=== PATIENT | male | born 1935 | race Caucasian/White ===

== ENCOUNTER → 2016-11-24 | Outpatient (CLI) | payer BC, MEDICARE ==
[2016-11-24 09:59] LABS: MEAN CORPUSCULAR HEMOGLOBIN 30.8 pg (27.0-33.0); MEAN CORPUSCULAR HGB CONC 33.1 g/dl (32.0-36.5); MEAN CORPUSCULAR VOLUME 92.9 fl (80.0-96.0); WHITE BLOOD COUNT 6.1 K/mm3 (4.0-10.0)
[2016-11-24 10:26] LABS: ALBUMIN 3.3 GM/DL (3.2-5.2); ALBUMIN/GLOBULIN RATIO 0.89 (1.00-1.93); BILIRUBIN,TOTAL 0.4 MG/DL (0.2-1.0); CALCIUM LEVEL 8.3 MG/DL (8.8-10.2); CREATININE FOR GFR 1.25 MG/DL (0.70-1.30); POTASSIUM SERUM 4.3 MEQ/L (3.5-5.1)
--- NOTE | 2016-11-24 23:00 | ECGEPIP ---
Stationary ECG Study 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 Electronically Signed On 11-24-2016 22:59:55 EDT by Carlos Buck
--- NOTE | 2016-11-27 16:03 | REP ---
PA and lateral chest: Comparison is 03/03/2016. The lung chester are clear. Cardiac size is upper normal, unchanged. Sternotomy wires are again noted. The anjali, mediastinum, and bony thorax are unremarkable. Faintly visible wires are noted in the anterior chest wall soft tissues inferiorly, unchanged. Impression: Essentially negative chest. No interval change. Signed by Piyush Lyles MD 11/27/2016 03:54 P
== END ==
LOC: M LAB 09:07
PROVIDERS: ATTEND Family Medicine
DX: I10 Essential (primary) hypertension (principal)

== ENCOUNTER → 2016-12-08 | Day surgery (SDC) | payer BC, MEDICARE ==
[~2016-12-08] VITALS: Ht 165.1 cm; Wt 70.3 kg
[~2016-12-08] MED LIST: ACETAMINOPHEN 325 MG TAB PO PRN; AMLO5TAB2 PO; ASPI1TAB PO; AcetaZOLAMIDE 500 MG ER CAP PO ONE; BSS with VANC/TOB/EPI for EYE CASES IR ONE; CYCLOPENTOLATE 2% OPHTH SOLN OS ONE; D5W/0.2% SODIUM CHLORIDE 1,000 ML IV SCH; HEALON DUET (HEALON 10MG/ML 0.55ML & HEALON ENDOCOAT 30MG/ML 0.85ML) As Ordered ONE; KETOROLAC 0.5% OPHTH SOLN OS ONE; LIDOCAINE 1% SDV 5 ML VIAL As Ordered ONE; LIDOCAINE 4% INJ 5 ML AMP OU ONE; LR 1,000 ML IV SCH; METO-207 PO; METOPROLOL SUCC *XL* 25MG TAB (TopROL *XL*) PO ONE; MOXIFLOXACIN IN BSS 0.25MG/0.25ML INTRACAMERAL INJ (OR EYE ONLY)(J2280) As Ordered ONE; OFLOXACIN 0.3 % (OCUFLOX) OPTH SOL 5ML OS ONE; ONDANSETRON 4MG/2ML VIAL (J2405) IV PRN; PHENYLEPHRINE 2.5% OPHTH SOL 2ML OS ONE; POVIDONE-IODINE 5% OPHTH PREP SOL 30ML As Ordered ONE; PRAV40TA2 PO; PROPARACAINE 0.5% OPHTH SOL 15ML OS PRN; SYNT100T PO; SYSTSOL11 OU; TRIAMCINOLONE PRES FR 40 MG/ML 1ML(TRIESENCE)(OR EYE ONLY)(J3300 PER 1MG) As Ordered ONE; TRIMETHOBENZAMIDE 300 MG CAP PO PRN; TROPICAMIDE 1% OPHTH SOLN 2 ML OS ONE
[2016-12-08 09:09] VITALS: BP 173/98
[2016-12-08 11:15] VITALS: BP 174/96
== END | disposition home or self-care (01) ==
LOC: M SDC 07:52
PROVIDERS: ATTEND Ophthalmology
DX: H26.9 Unspecified cataract (principal); I25.10 Atherosclerotic heart disease of native coronary artery without angina pectoris; E78.00 Pure hypercholesterolemia, unspecified; E03.9 Hypothyroidism, unspecified; R29.898 Other symptoms and signs involving the musculoskeletal system; Z79.899 Other long term (current) drug therapy; Z79.82 Long term (current) use of aspirin
CPT/HCPCS: 66984; J2280; J3300

== ENCOUNTER → 2016-12-16 | Day surgery (SDC) | payer BC, MEDICARE ==
[~2016-12-16] MED LIST changes: +CYCLOPENTOLATE 2% OPHTH SOLN OD ONE; -CYCLOPENTOLATE 2% OPHTH SOLN OS ONE; -D5W/0.2% SODIUM CHLORIDE 1,000 ML IV SCH; +D5W/0.2% SODIUM CHLORIDE 250 ML IV SCH; +FISH5CAP PO; +KETOROLAC 0.5% OPHTH SOLN OD ONE; -KETOROLAC 0.5% OPHTH SOLN OS ONE; -LR 1,000 ML IV SCH; -METOPROLOL SUCC *XL* 25MG TAB (TopROL *XL*) PO ONE; +MIDAZOLAM INJ 2 MG/2 ML VIAL (J2250) As Ordered ONE; +OFLOXACIN 0.3 % (OCUFLOX) OPTH SOL 5ML OD ONE; -OFLOXACIN 0.3 % (OCUFLOX) OPTH SOL 5ML OS ONE; -ONDANSETRON 4MG/2ML VIAL (J2405) IV PRN; +PHENYLEPHRINE 2.5% OPHTH SOL 2ML OD ONE; -PHENYLEPHRINE 2.5% OPHTH SOL 2ML OS ONE; +PROPARACAINE 0.5% OPHTH SOL 15ML OD PRN; -PROPARACAINE 0.5% OPHTH SOL 15ML OS PRN; +TROPICAMIDE 1% OPHTH SOLN 2 ML OD ONE; -TROPICAMIDE 1% OPHTH SOLN 2 ML OS ONE; +fentaNYL 100 MCG/2 ML INJECTION (J3010) As Ordered ONE
[2016-12-16 09:25] VITALS: BP 179/86
== END | disposition home or self-care (01) ==
LOC: M SDC 06:24
PROVIDERS: ATTEND Ophthalmology
DX: H26.9 Unspecified cataract (principal); I10 Essential (primary) hypertension; E03.9 Hypothyroidism, unspecified; I25.10 Atherosclerotic heart disease of native coronary artery without angina pectoris; E78.00 Pure hypercholesterolemia, unspecified; R29.898 Other symptoms and signs involving the musculoskeletal system; Z79.899 Other long term (current) drug therapy; Z79.82 Long term (current) use of aspirin; Z85.46 Personal history of malignant neoplasm of prostate
CPT/HCPCS: 66984; J2250; J2280; J3010; J3300

== ENCOUNTER → 2017-12-06 | Outpatient (CLI) | payer BC ==
[2017-12-06 12:40] LABS: HEMATOCRIT 43.3 % (42.0-52.0); HEMOGLOBIN 14.5 g/dl (13.5-17.5); MEAN CORPUSCULAR HEMOGLOBIN 30.9 pg (27.0-33.0); MEAN CORPUSCULAR HGB CONC 33.5 g/dl (32.0-36.5); MEAN CORPUSCULAR VOLUME 92.3 fl (80.0-96.0); PLATELET COUNT, AUTOMATED 217 10^3/uL (150-450); RED BLOOD COUNT 4.69 10^6/uL (4.30-6.10); RED CELL DISTRIBUTION WIDTH 12.9 % (11.5-14.5); WHITE BLOOD COUNT 7.8 10^3/uL (4.0-10.0)
[2017-12-06 13:18] LABS: ALBUMIN 3.6 GM/DL (3.2-5.2); ALKALINE PHOSPHATASE 89 U/L (45-117); ALT/SGPT 23 U/L (12-78); ANION GAP 7 MEQ/L (8-16); AST/SGOT 23 U/L (7-37); BILIRUBIN,TOTAL 0.3 MG/DL (0.2-1.0); BLOOD UREA NITROGEN 24 MG/DL (7-18); CALCIUM LEVEL 8.7 MG/DL (8.8-10.2); CARBON DIOXIDE LEVEL 27 MEQ/L (21-32); CHLORIDE LEVEL 108 MEQ/L (98-107); CHOLESTEROL LEVEL 156 MG/DL (<200); CHOLESTEROL RISK RATIO 2.888 (<5); GLOMERULAR FILTRATION RATE 56.3 (>35); GLUCOSE, FASTING 87 MG/DL (70-100); HDL CHOLESTEROL 54 MG/DL (>40); LDL CHOLESTEROL 82.4 MG/DL (<100); NON-HDL-C 102 MG/DL; POTASSIUM SERUM 4.5 MEQ/L (3.5-5.1); SODIUM LEVEL 142 MEQ/L (136-145); THYROID STIMULATING HORMONE 0.321 uIU/ML (0.358-3.740); TOTAL PROTEIN 7.2 GM/DL (6.4-8.2); TRIGLYCERIDES LEVEL 98 MG/DL (<150)
== END ==
LOC: M LAB 11:57
DX: R94.31 Abnormal electrocardiogram [ECG] [EKG] (principal); I10 Essential (primary) hypertension; N40.0 Benign prostatic hyperplasia without lower urinary tract symptoms; E03.9 Hypothyroidism, unspecified
CPT/HCPCS: 71046

== ENCOUNTER → 2017-12-23 | Outpatient (REF) | payer BC, MEDICARE ==
[2017-12-23 13:47] LABS: APPEARANCE, URINE CLEAR (CLEAR); BACTERIA, URINE AUTO NEGATIVE (NEGATIVE); BILIRUBIN, URINE AUTO NEGATIVE (NEGATIVE); BLOOD, URINE BLOOD NEGATIVE (NEGATIVE); COLOR, URINE YELLOW (YELLOW); GLUCOSE, URINE (UA) AUTO NEGATIVE (NEGATIVE); KETONE, URINE AUTO NEGATIVE (NEGATIVE); LEUKOCYTE ESTERASE, URINE AUTO NEGATIVE (NEGATIVE); NITRITE, URINE AUTO NEGATIVE (NEGATIVE); PROTEIN, URINE AUTO 2+ mg/dL (NEGATIVE); RBC, URINE AUTO 0 /HPF (0-3); SPECIFIC GRAVITY URINE AUTO 1.016 (1.002-1.035); SQUAMOUS EPITHELIAL CELL UR AU 0 /HPF (0-6); UROBILINOGEN, URINE AUTO 0.2 mg/dL (0.0-2.0); WBC, URINE AUTO 0 /HPF (0-3)
== END ==
LOC: M SMT 13:22
DX: R97.20 Elevated prostate specific antigen [PSA] (principal)
CPT/HCPCS: 81001

== ENCOUNTER → 2018-01-04 | Outpatient (CLI) | payer BC, MEDICARE | LOC: M SMT PRO 09:22 | DX: R97.20 Elevated prostate specific antigen [PSA] (principal) | CPT/HCPCS: G0416 ==

== ENCOUNTER → 2018-04-07 | Outpatient (CLI) | payer BC, MEDICARE ==
[2018-04-07 11:17] LABS: HEMATOCRIT 43.2 % (42.0-52.0); HEMOGLOBIN 14.4 g/dl (13.5-17.5); MEAN CORPUSCULAR HEMOGLOBIN 30.6 pg (27.0-33.0); MEAN CORPUSCULAR HGB CONC 33.3 g/dl (32.0-36.5); MEAN CORPUSCULAR VOLUME 91.7 fl (80.0-96.0); PLATELET COUNT, AUTOMATED 208 10^3/uL (150-450); RED BLOOD COUNT 4.71 10^6/uL (4.30-6.10); RED CELL DISTRIBUTION WIDTH 12.8 % (11.5-14.5)
[2018-04-07 11:28] LABS: INR 0.93; PROTHROMBIN TIME 12.6 SECONDS (12.1-14.4)
[2018-04-07 11:50] LABS: ALBUMIN 3.5 GM/DL (3.2-5.2); ALKALINE PHOSPHATASE 83 U/L (45-117); ALT/SGPT 21 U/L (12-78); ANION GAP 9 MEQ/L (8-16); AST/SGOT 20 U/L (7-37); BILIRUBIN,TOTAL 0.5 MG/DL (0.2-1.0); BLOOD UREA NITROGEN 33 MG/DL (7-18); CALCIUM LEVEL 8.7 MG/DL (8.8-10.2); CARBON DIOXIDE LEVEL 28 MEQ/L (21-32); CHLORIDE LEVEL 104 MEQ/L (98-107); CHOLESTEROL LEVEL 152 MG/DL (<200); CHOLESTEROL RISK RATIO 3.166 (<5); CREATININE FOR GFR 1.73 MG/DL (0.70-1.30); GLOMERULAR FILTRATION RATE 40.4 (>35); GLUCOSE, FASTING 85 MG/DL (70-100); HDL CHOLESTEROL 48 MG/DL (>40); LDL CHOLESTEROL 89.2 MG/DL (<100); NON-HDL-C 104 MG/DL; POTASSIUM SERUM 4.2 MEQ/L (3.5-5.1); SODIUM LEVEL 141 MEQ/L (136-145); THYROID STIMULATING HORMONE 0.277 uIU/ML (0.358-3.740); TOTAL PROTEIN 7.4 GM/DL (6.4-8.2); TRIGLYCERIDES LEVEL 74 MG/DL (<150)
== END ==
LOC: M LAB 10:30
DX: Z01.818 Encounter for other preprocedural examination (principal); I10 Essential (primary) hypertension
CPT/HCPCS: 71046

== ENCOUNTER 2018-04-12 05:42 | Day surgery (SDC) | payer BC, MEDICARE ==
[2018-04-12] MEDS ORDERED: SLF 3 ML SYR IV ×2 (06:00)
[2018-04-12 06:28] LABS: BEDSIDE GLUCOSE 104 MG/DL (83-110)
[2018-04-12] MEDS: LIDOCAINE 3.5 % 1ML OPHTH TOPICAL GEL OU (07:00)
[2018-04-12] MEDS ORDERED: PROPOFOL 200 MG/20 ML VIAL As Ordered (07:01)
[2018-04-12] MEDS ORDERED: LIDOCAINE 2% INJ 100 MG/5 ML SDV (FOR ANES.) As Ordered (07:01)
[2018-04-12] MEDS: LIDOCAINE 2% W/EPIN INJ 20ML **PRES FREE As Ordered (07:35)
[2018-04-12] MEDS: POVIDONE-IODINE 5% OPHTH PREP SOL 30ML As Ordered (07:35)
[2018-04-12] MEDS: TETRACAINE 0.5% OPHTH SOLN 4ML As Ordered (07:41)
[2018-04-12] MEDS: TOBRADEX OPHTH OINT 3.5 GM As Ordered (07:42)
== END 2018-04-12 09:00 | disposition home or self-care (01) ==
LOC: M SDC 05:42
DX: H02.012 Cicatricial entropion of right lower eyelid (principal); H02.015 Cicatricial entropion of left lower eyelid; I10 Essential (primary) hypertension; E11.9 Type 2 diabetes mellitus without complications; E78.5 Hyperlipidemia, unspecified; E03.9 Hypothyroidism, unspecified; Z79.82 Long term (current) use of aspirin; Z79.84 Long term (current) use of oral hypoglycemic drugs; Z79.899 Other long term (current) drug therapy
CPT/HCPCS: 67924

== ENCOUNTER → 2018-07-05 | Outpatient (CLI) | payer BC, MEDICARE ==
[2018-07-05 10:44] LABS: HEMATOCRIT 43.3 % (42.0-52.0); HEMOGLOBIN 14.2 g/dl (13.5-17.5); MEAN CORPUSCULAR HEMOGLOBIN 31.2 pg (27.0-33.0); MEAN CORPUSCULAR HGB CONC 32.8 g/dl (32.0-36.5); MEAN CORPUSCULAR VOLUME 95.2 fl (80.0-96.0); PLATELET COUNT, AUTOMATED 180 10^3/uL (150-450); RED BLOOD COUNT 4.55 10^6/uL (4.30-6.10); WHITE BLOOD COUNT 7.1 10^3/uL (4.0-10.0)
[2018-07-05 11:10] LABS: ESTIMATED AVERAGE GLUCOSE 117 MG/DL (60-110); HEMOGLOBIN A1c 5.7 %
[2018-07-05 11:24] LABS: ALBUMIN 3.3 GM/DL (3.2-5.2); ALBUMIN/GLOBULIN RATIO 0.92 (1.00-1.93); ALKALINE PHOSPHATASE 85 U/L (45-117); ALT/SGPT 24 U/L (12-78); ANION GAP 5 MEQ/L (8-16); AST/SGOT 21 U/L (7-37); BILIRUBIN,TOTAL 0.4 MG/DL (0.2-1.0); BLOOD UREA NITROGEN 29 MG/DL (7-18); CALCIUM LEVEL 8.5 MG/DL (8.8-10.2); CARBON DIOXIDE LEVEL 30 MEQ/L (21-32); CHLORIDE LEVEL 108 MEQ/L (98-107); CHOLESTEROL LEVEL 163 MG/DL (<200); CHOLESTEROL RISK RATIO 3.018 (<5); GLOMERULAR FILTRATION RATE 56.1 (>35); GLUCOSE, FASTING 98 MG/DL (70-100); HDL CHOLESTEROL 54 MG/DL (>40); LDL CHOLESTEROL 96 MG/DL (<100); NON-HDL-C 109 MG/DL; POTASSIUM SERUM 4.2 MEQ/L (3.5-5.1); PROSTATIC SPECIFIC AG MONITOR 5.1 NG/ML (< 4.0); SODIUM LEVEL 143 MEQ/L (136-145); THYROID STIMULATING HORMONE 0.464 uIU/ML (0.358-3.740); TOTAL PROTEIN 6.9 GM/DL (6.4-8.2); TRIGLYCERIDES LEVEL 66 MG/DL (<150)
== END ==
LOC: M LAB 10:05
DX: E03.9 Hypothyroidism, unspecified (principal); I10 Essential (primary) hypertension; R53.83 Other fatigue
CPT/HCPCS: 84443

== ENCOUNTER → 2018-10-24 | Outpatient (CLI) | payer BC, MEDICARE ==
[~2018-10-24] MED LIST changes: -ACETAMINOPHEN 325 MG TAB PO PRN; -AMLO5TAB2 PO; +AMLO5TAB6 PO; -AcetaZOLAMIDE 500 MG ER CAP PO ONE; -BSS with VANC/TOB/EPI for EYE CASES IR ONE; -CYCLOPENTOLATE 2% OPHTH SOLN OD ONE; -D5W/0.2% SODIUM CHLORIDE 250 ML IV SCH; -HEALON DUET (HEALON 10MG/ML 0.55ML & HEALON ENDOCOAT 30MG/ML 0.85ML) As Ordered ONE; +HYDR12CA PO; -KETOROLAC 0.5% OPHTH SOLN OD ONE; -LIDOCAINE 1% SDV 5 ML VIAL As Ordered ONE; -LIDOCAINE 4% INJ 5 ML AMP OU ONE; +METF500T13 PO; -METO-207 PO; +METO1TAB7 PO; +METO50TA7 PO; -MIDAZOLAM INJ 2 MG/2 ML VIAL (J2250) As Ordered ONE; -MOXIFLOXACIN IN BSS 0.25MG/0.25ML INTRACAMERAL INJ (OR EYE ONLY)(J2280) As Ordered ONE; -OFLOXACIN 0.3 % (OCUFLOX) OPTH SOL 5ML OD ONE; -PHENYLEPHRINE 2.5% OPHTH SOL 2ML OD ONE; -POVIDONE-IODINE 5% OPHTH PREP SOL 30ML As Ordered ONE; -PROPARACAINE 0.5% OPHTH SOL 15ML OD PRN; -TRIAMCINOLONE PRES FR 40 MG/ML 1ML(TRIESENCE)(OR EYE ONLY)(J3300 PER 1MG) As Ordered ONE; -TRIMETHOBENZAMIDE 300 MG CAP PO PRN; -TROPICAMIDE 1% OPHTH SOLN 2 ML OD ONE; -fentaNYL 100 MCG/2 ML INJECTION (J3010) As Ordered ONE
[2018-10-24 09:12] LABS: CALCIUM LEVEL 8.2 MG/DL (8.8-10.2); CREATININE FOR GFR 1.37 MG/DL (0.70-1.30); GLOMERULAR FILTRATION RATE 52.8 (>35); POTASSIUM SERUM 4.5 MEQ/L (3.5-5.1)
== END ==
LOC: M LAB 07:48
PROVIDERS: ATTEND Internal Medicine Cardiovascular Disease
DX: I10 Essential (primary) hypertension (principal)

== ENCOUNTER → 2018-11-30 | Outpatient (CLI) | payer BC, MEDICARE ==
[~2018-11-30] MED LIST changes: +AMLO2.5T3 PO; -ASPI1TAB PO; +ASPI81TA26 PO; +DOXA1TAB85 PO; +OMEG12003 PO; +SYST1SOL4 OU
[2018-11-30 09:49] LABS: HEMATOCRIT 42.3 % (42.0-52.0); HEMOGLOBIN 13.7 g/dl (13.5-17.5); MEAN CORPUSCULAR HEMOGLOBIN 30.4 pg (27.0-33.0); MEAN CORPUSCULAR HGB CONC 32.4 g/dl (32.0-36.5); PLATELET COUNT, AUTOMATED 182 10^3/uL (150-450); WHITE BLOOD COUNT 6.2 10^3/uL (4.0-10.0)
[2018-11-30 09:59] LABS: INR 0.96; PROTHROMBIN TIME 12.9 SECONDS (12.1-14.4)
[2018-11-30 10:17] LABS: ALBUMIN 3.4 GM/DL (3.2-5.2); BILIRUBIN,TOTAL 0.4 MG/DL (0.2-1.0); CALCIUM LEVEL 8.5 MG/DL (8.8-10.2); CHOLESTEROL RISK RATIO 2.879 (<5); CREATININE FOR GFR 1.34 MG/DL (0.70-1.30); GLOMERULAR FILTRATION RATE 54.2 (>35); POTASSIUM SERUM 4.5 MEQ/L (3.5-5.1); PROSTATIC SPECIFIC AG MONITOR 6.02 NG/ML (< 4.00); THYROID STIMULATING HORMONE 0.789 uIU/ML (0.358-3.740); TOTAL PROTEIN 6.8 GM/DL (6.4-8.2)
[2018-11-30 10:46] LABS: HEMOGLOBIN A1c 5.9 %
--- NOTE | 2018-12-01 03:50 | REP ---
Clinical: Hypertension . Comparison: 04/07/2018 . Technique: PA and lateral. Findings: The mediastinum and cardiac silhouette are stable and within normal limits. Evidence of prior sternotomy and CABG noted. The lung chester are clear and without acute consolidation, effusion, or pneumothorax. The skeletal structures are intact and normal. Impression: 1. No acute cardiopulmonary process. Electronically Signed by Ceasar Bello MD 12/01/2018 03:42 A
--- NOTE | 2018-12-01 20:29 | ECGEPIP ---
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 Electronically Signed On 12-01-2018 20:29:28 EDT by Jairo Galindo
== END ==
LOC: M LAB 08:53
PROVIDERS: ATTEND Family Medicine
DX: Z01.812 Encounter for preprocedural laboratory examination (principal); I10 Essential (primary) hypertension

== ENCOUNTER 2018-12-12 07:40 | Day surgery (SDC) | payer BC, MEDICARE ==
[~2018-12-12] VITALS: Ht 165.1 cm; Wt 75.9 kg
[~2018-12-12 07:40] MED LIST changes: +LIDOCAINE 3.5 % 1ML OPHTH TOPICAL GEL OU ONE; +POVIDONE-IODINE 5% OPHTH PREP SOL 30ML As Ordered ONE; +SODIUM BICARBONATE 8.4% INJ 50MEQ 50 ML VIAL As Ordered ONE; +TETRACAINE 0.5% OPHTH SOLN 4ML As Ordered ONE; +TOBRADEX OPHTH OINT 3.5 GM As Ordered ONE
[2018-12-12] MEDS ORDERED: LIDOCAINE 2% INJ 100 MG/5 ML SDV (FOR ANES.) As Ordered ONE (08:08)
[2018-12-12] MEDS ORDERED: PROPOFOL 200 MG/20 ML VIAL As Ordered ONE (08:08)
[2018-12-12] MEDS ORDERED: fentaNYL 100 MCG/2 ML INJECTION (J3010) As Ordered ONE (08:08)
[2018-12-12] MEDS ORDERED: MIDAZOLAM INJ 2 MG/2 ML VIAL (J2250) As Ordered ONE (08:09)
[2018-12-12] MEDS: LIDOCAINE 2% W/EPIN INJ 20ML **PRES FREE As Ordered ONE ×2 (09:24→09:30)
[2018-12-12 11:20] VITALS: BP 179/80
--- NOTE | 2019-01-04 06:49 | RO ---
DATE OF PROCEDURE: 12/12/2018 PREOPERATIVE DIAGNOSES: Dermatochalasis and ptosis both eyes. POSTOPERATIVE DIAGNOSES: Dermatochalasis and ptosis both eyes. OPERATIVE PROCEDURE: Bilateral brephoplasty with levator aponeurosis reattachment and ptosis repair both upper lids. SURGEON: Tri Lawrence MD SENIOR COMPLIANCE ANALYST: None. ANESTHESIA: Local IV standby. COMPLICATIONS: None. PROCEDURE IN DETAIL: The patient was brought to the operating room. Upper face was prepped and draped in a sterile fashion for ophthalmic surgery. Following which, both upper lids were marked with a sterile marker along the lines of intended skin incision. Both upper lids were then infiltrated with 2% lidocaine with 1:100,000 epinephrine and after waiting for a few minutes, with the help of the electrocautery and Anitra scissors attention was first diverted to the right eye and the premarked skin was excised. Hemostasis was obtained as necessary. Deeper dissection was carried out until I isolated the medial and lateral fat pads which were cut with the help of electrocautery and hemostasis obtained. Levator aponeurosis was then identified and was reattached using interrupted #6-0 nylon sutures. Lid position was noted to be satisfactory. Skin was closed using #6-0 nylon sutures. Exactly the same procedure was repeated for the left eye. At the end of the case, TobraDex ointment was applied. Ice packs were placed and patient was returned to the recovery room in stable condition. edited 01/04/2019/jessy VIRK
== END 2018-12-12 11:40 | disposition home or self-care (01) ==
LOC: M SDC 07:40
PROVIDERS: ATTEND Ophthalmology
DX: H02.834 Dermatochalasis of left upper eyelid (principal); H02.831 Dermatochalasis of right upper eyelid; I10 Essential (primary) hypertension; I25.10 Atherosclerotic heart disease of native coronary artery without angina pectoris; E03.9 Hypothyroidism, unspecified; E78.00 Pure hypercholesterolemia, unspecified; N40.0 Benign prostatic hyperplasia without lower urinary tract symptoms; Z79.899 Other long term (current) drug therapy; Z79.82 Long term (current) use of aspirin; Z79.84 Long term (current) use of oral hypoglycemic drugs; Z96.1 Presence of intraocular lens; Z98.41 Cataract extraction status, right eye; Z98.42 Cataract extraction status, left eye
CPT/HCPCS: 15823; 88302; J2250; J3010

== ENCOUNTER → 2019-01-09 | Outpatient (CLI) | payer BC, MEDICARE ==
[~2019-01-09] MED LIST changes: -LIDOCAINE 3.5 % 1ML OPHTH TOPICAL GEL OU ONE; -POVIDONE-IODINE 5% OPHTH PREP SOL 30ML As Ordered ONE; -SODIUM BICARBONATE 8.4% INJ 50MEQ 50 ML VIAL As Ordered ONE; -TETRACAINE 0.5% OPHTH SOLN 4ML As Ordered ONE; -TOBRADEX OPHTH OINT 3.5 GM As Ordered ONE
[2019-01-09 09:10] LABS: HEMATOCRIT 42.2 % (42.0-52.0); HEMOGLOBIN 13.9 g/dl (13.5-17.5); MEAN CORPUSCULAR HGB CONC 32.9 g/dl (32.0-36.5); MEAN CORPUSCULAR VOLUME 94.2 fl (80.0-96.0); PLATELET COUNT, AUTOMATED 171 10^3/uL (150-450); RED BLOOD COUNT 4.48 10^6/uL (4.30-6.10)
[2019-01-09 09:30] LABS: ALBUMIN 3.2 GM/DL (3.2-5.2); ALT/SGPT 14 U/L (12-78); BILIRUBIN,TOTAL 0.3 MG/DL (0.2-1.0); BLOOD UREA NITROGEN 26 MG/DL (7-18); CALCIUM LEVEL 8.6 MG/DL (8.8-10.2); CARBON DIOXIDE LEVEL 27 MEQ/L (21-32); CHLORIDE LEVEL 110 MEQ/L (98-107); CHOLESTEROL LEVEL 156 MG/DL (<200); CHOLESTEROL RISK RATIO 2.836 (<5); GLOMERULAR FILTRATION RATE > 60.0 (>35); GLUCOSE, FASTING 104 MG/DL (70-100); HDL CHOLESTEROL 55 MG/DL (>40); LDL CHOLESTEROL 89 MG/DL (<100); NON-HDL-C 101 MG/DL; PROSTATIC SPECIFIC AG MONITOR 5.21 NG/ML (< 4.00); SODIUM LEVEL 143 MEQ/L (136-145); THYROID STIMULATING HORMONE 0.199 uIU/ML (0.358-3.740); TOTAL PROTEIN 6.4 GM/DL (6.4-8.2); TRIGLYCERIDES LEVEL 59 MG/DL (<150)
[2019-01-09 10:08] LABS: HEMOGLOBIN A1c 5.9 %
== END ==
LOC: M LAB 08:11
PROVIDERS: ATTEND Family Medicine
DX: I10 Essential (primary) hypertension (principal); R53.83 Other fatigue

== ENCOUNTER 2019-01-30 09:01 | Emergency (ER) | payer BC, MEDICARE ==
[~2019-01-30] VITALS: Ht 165.1 cm; Wt 70.5 kg
[2019-01-30 09:48] LABS: BASO % 0.6 % (0.0-1.0); EOS # 0.1 10^3/uL (0.0-0.50); EOS % 1.6 % (0.0-3.0); HEMATOCRIT 43.2 % (42.0-52.0); HEMOGLOBIN 14.2 g/dl (13.5-17.5); LYMPH # 1.3 10^3/uL (1.5-4.5); MEAN CORPUSCULAR HEMOGLOBIN 30.7 pg (27.0-33.0); MEAN CORPUSCULAR HGB CONC 32.9 g/dl (32.0-36.5); MEAN CORPUSCULAR VOLUME 93.5 fl (80.0-96.0); MONO # 0.6 10^3/uL (0.0-0.8); MONO % 9.2 % (0.0-5.0); NEUTROPHILS # 4.4 10^3/uL (1.8-7.7); NEUTROPHILS % 67.8 % (36.0-66.0); PLATELET COUNT, AUTOMATED 175 10^3/uL (150-450); RED BLOOD COUNT 4.62 10^6/uL (4.30-6.10); WHITE BLOOD COUNT 6.4 10^3/uL (4.0-10.0)
[2019-01-30 10:12] LABS: ALBUMIN 3.1 GM/DL (3.2-5.2); ALT/SGPT 20 U/L (12-78); BILIRUBIN,TOTAL 0.3 MG/DL (0.2-1.0); BLOOD UREA NITROGEN 31 MG/DL (7-18); CALCIUM LEVEL 8.7 MG/DL (8.8-10.2); CARBON DIOXIDE LEVEL 29 MEQ/L (21-32); CHLORIDE LEVEL 109 MEQ/L (98-107); CREATININE FOR GFR 1.48 MG/DL (0.70-1.30); GLOMERULAR FILTRATION RATE 48.3 (>35); GLUCOSE, FASTING 114 MG/DL (70-100); POTASSIUM SERUM 4.1 MEQ/L (3.5-5.1); SODIUM LEVEL 144 MEQ/L (136-145); TOTAL PROTEIN 6.9 GM/DL (6.4-8.2)
[2019-01-30 10:44] LABS: CK-MB VALUE MASS 1.7 NG/ML (<3.6); CPK CREATINE PHOSPHOKINASE 72 U/L (39-308); MB/CK RELATIVE INDEX 2.36 (< OR =4); TROPONIN I < 0.02 NG/ML (< 0.10)
--- NOTE | 2019-01-30 11:08 | REP ---
CHEST, TWO VIEWS: Two views of the chest are performed and compared to a prior study of 11/30/2018. There is no acute infiltrate or pulmonary edema. There is mild cardiomegaly. Mediastinal silhouette is unchanged. There are multiple sternal wires and mediastinal clips present. There are mild degenerative changes of the spine. IMPRESSION: No acute pulmonary disease. Electronically Signed by Piyush Pablo MD 01/31/2019 11:31 A
[2019-01-30 12:39] VITALS: BP 157/79
--- NOTE | 2019-01-31 07:46 | ECGEPIP ---
[facility] - ED Test Date: 2019-01-30 Pat Name: KAYLEY METZGER Department: Room: - Gender: Male On Air Host: TC : 1935 Requested By: CARL Bhagat Order Number: [id number] Reading MD: Nelson Rodriguez Measurements Intervals [place] Rate: 56 P: 61 [place]: 164 QRS: 5 QRSD: 104 T: 52 QT: 426 QTc: 415 Interpretive Statements SINUS BRADYCARDIA POSSIBLE LEFT ATRIAL ENLARGEMENT MODERATE VOLTAGE CRITERIA FOR LVH, CONSIDER NORMAL VARIANT INFERIOR MYOCARDIAL INFARCTION, PROBABLY OLD MODERATE INTRAVENTRICULAR CONDUCTION DELAY SIMILAR TO 11/30/18 Electronically Signed on 01-31-2019 7:45:48 EDT by Nelson Rodriguez
== END 2019-01-30 12:45 | disposition home or self-care (01) ==
LOC: EDBD 09:01 → M ED 09:01
DX: R55 Syncope and collapse (principal); E11.9 Type 2 diabetes mellitus without complications; I10 Essential (primary) hypertension; E07.9 Disorder of thyroid, unspecified; E78.5 Hyperlipidemia, unspecified; Z79.899 Other long term (current) drug therapy; Z79.890 Hormone replacement therapy; Z79.82 Long term (current) use of aspirin

== ENCOUNTER → 2019-05-05 | Outpatient (CLI) | payer BC, MEDICARE ==
[2019-05-05 09:50] LABS: HEMATOCRIT 40.1 % (42.0-52.0); HEMOGLOBIN 13.2 g/dl (13.5-17.5); MEAN CORPUSCULAR HEMOGLOBIN 30.3 pg (27.0-33.0); MEAN CORPUSCULAR HGB CONC 32.9 g/dl (32.0-36.5); MEAN CORPUSCULAR VOLUME 92.2 fl (80.0-96.0); PLATELET COUNT, AUTOMATED 187 10^3/uL (150-450); RED BLOOD COUNT 4.35 10^6/uL (4.30-6.10); WHITE BLOOD COUNT 6.5 10^3/uL (4.0-10.0)
[2019-05-05 10:04] LABS: HEMOGLOBIN A1c 5.9 %
--- NOTE | 2019-05-05 10:17 | REP ---
Chest x-ray: Two views. History: Fatigue. Hypertension. Comparison study: January 30, 2019. Findings: The patient is status post median sternotomy. The heart is mildly prominent. Cardiothoracic ratio measures 52.3%. Heart is unchanged. The descending aorta somewhat tortuous. The lungs are well inflated and clear. Pulmonary vasculature is not increased. Lateral view demonstrates hyperinflation with flattening of the diaphragms. This consistent with COPD. No significant bony abnormality is seen. Impression: Hyperinflation consistent with COPD. Mild cardiac enlargement. Otherwise no acute disease. Electronically Signed by Florentino Jackson MD 05/05/2019 10:09 A
[2019-05-05 10:19] LABS: ALBUMIN 3.2 GM/DL (3.2-5.2); BILIRUBIN,TOTAL 0.4 MG/DL (0.2-1.0); CALCIUM LEVEL 9.2 MG/DL (8.8-10.2); CHOLESTEROL RISK RATIO 2.719 (<5); CREATININE FOR GFR 1.36 MG/DL (0.70-1.30); GLOMERULAR FILTRATION RATE 53.1 (>35); POTASSIUM SERUM 4.5 MEQ/L (3.5-5.1); PROSTATIC SPECIFIC AG MONITOR 6.65 NG/ML (< 4.00); THYROID STIMULATING HORMONE 0.742 uIU/ML (0.358-3.740); TOTAL PROTEIN 6.7 GM/DL (6.4-8.2)
--- NOTE | 2019-05-05 16:44 | ECGEPIP ---
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
== END ==
LOC: M LAB 08:54
PROVIDERS: ATTEND Family Medicine
DX: I10 Essential (primary) hypertension (principal); E03.9 Hypothyroidism, unspecified; R53.83 Other fatigue; J44.9 Chronic obstructive pulmonary disease, unspecified

== ENCOUNTER → 2020-06-05 | Outpatient (CLI) | payer BC, MEDICARE ==
[~2020-06-05] MED LIST changes: +AMLO1TAB24 PO; -AMLO5TAB6 PO
[2020-06-05 09:24] LABS: HEMATOCRIT 44.2 % (42.0-52.0); HEMOGLOBIN 14.1 g/dl (13.5-17.5); MEAN CORPUSCULAR HEMOGLOBIN 30.1 pg (27.0-33.0); MEAN CORPUSCULAR HGB CONC 31.9 g/dl (32.0-36.5); MEAN CORPUSCULAR VOLUME 94.2 fl (80.0-96.0); PLATELET COUNT, AUTOMATED 181 10^3/uL (150-450); RED BLOOD COUNT 4.69 10^6/uL (4.30-6.10); WHITE BLOOD COUNT 6.3 10^3/uL (4.0-10.0)
--- NOTE | 2020-06-05 10:16 | ECGEPIP ---
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
[2020-06-05 10:17] LABS: HEMOGLOBIN A1c 5.8 %
[2020-06-05 10:27] LABS: ALBUMIN 3.3 GM/DL (3.2-5.2); BILIRUBIN,TOTAL 0.5 MG/DL (0.2-1.0); CALCIUM LEVEL 8.9 MG/DL (8.8-10.2); CHOLESTEROL RISK RATIO 2.683 (<5); CREATININE FOR GFR 1.69 MG/DL (0.70-1.30); GLOMERULAR FILTRATION RATE 41.3 (>35); POTASSIUM SERUM 4.3 MEQ/L (3.5-5.1); PROSTATIC SPECIFIC AG MONITOR 16.8 NG/ML (< 4.00); THYROID STIMULATING HORMONE 0.586 uIU/ML (0.358-3.740)
--- NOTE | 2020-06-10 10:25 | REP ---
CHEST XRAY: 06/05/20 CLINICAL: Hypertension and hypothyroidism. TECHNIQUE: PA and lateral. COMPARISON: 05/05/19. FINDINGS: Evidence for prior sternotomy and CABG. The cardiac silhouette is normal. The lung chester are clear. No consolidation, effusion, or pneumothorax. Skeletal structures intact. IMPRESSION: No acute cardiopulmonary process or focal consolidation. MTDD
== END ==
LOC: M LAB 08:35
PROVIDERS: ATTEND Family Medicine
DX: Z00.00 Encounter for general adult medical examination without abnormal findings (principal); I10 Essential (primary) hypertension; E11.9 Type 2 diabetes mellitus without complications; N40.0 Benign prostatic hyperplasia without lower urinary tract symptoms; E03.9 Hypothyroidism, unspecified

== ENCOUNTER → 2020-07-02 | Outpatient (REF) | payer BC, MEDICARE ==
[2020-07-02 18:05] LABS: APPEARANCE, URINE CLEAR (CLEAR); BACTERIA, URINE AUTO NEGATIVE (NEGATIVE); BILIRUBIN, URINE AUTO NEGATIVE (NEGATIVE); BLOOD, URINE BLOOD NEGATIVE (NEGATIVE); COLOR, URINE YELLOW (YELLOW); GLUCOSE, URINE (UA) AUTO NEGATIVE (NEGATIVE); KETONE, URINE AUTO NEGATIVE (NEGATIVE); LEUKOCYTE ESTERASE, URINE AUTO NEGATIVE (NEGATIVE); NITRITE, URINE AUTO NEGATIVE (NEGATIVE); PROTEIN, URINE AUTO 3+ mg/dL (NEGATIVE); RBC, URINE AUTO 0 /HPF (0-3); SPECIFIC GRAVITY URINE AUTO 1.017 (1.002-1.035); SQUAMOUS EPITHELIAL CELL UR AU 0 /HPF (0-6); UROBILINOGEN, URINE AUTO 0.2 mg/dL (0.0-2.0); WBC, URINE AUTO 1 /HPF (0-3)
== END ==
LOC: M SMT 17:13
PROVIDERS: ATTEND Nurse Practitioner Women's Health
DX: N40.0 Benign prostatic hyperplasia without lower urinary tract symptoms (principal)

== ENCOUNTER → 2020-07-04 | Outpatient (CLI) | payer BC, MEDICARE ==
[2020-07-04 10:09] LABS: CALCIUM LEVEL 8.7 MG/DL (8.8-10.2); CREATININE FOR GFR 1.47 MG/DL (0.70-1.30); GLOMERULAR FILTRATION RATE 48.5 (>35); POTASSIUM SERUM 4.2 MEQ/L (3.5-5.1)
== END ==
LOC: M LAB 09:02
PROVIDERS: ATTEND Nurse Practitioner Women's Health
DX: R97.20 Elevated prostate specific antigen [PSA] (principal)

== ENCOUNTER → 2020-07-29 | Outpatient (CLI) | payer BC, MEDICARE ==
--- NOTE | 2020-07-30 13:53 | REP ---
INDICATION: ELEVATED PSA. Status post ultrasound-guided prostate transrectal needle biopsy January 04, 2018. COMPARISON: January 04, 2018 transrectal prostate sonography. TECHNIQUE: Using a phased array surface coil, small qteyy-my-kgnj imaging was acquired using T2 weighted scans in the axial, coronal, and sagittal imaging planes. Small yfmom-ji-ttvp diffusion-weighted sequences are acquired. Small vpclz-ta-dtjo axial T1 weighted scans are acquired dynamically before and after the intravenous administration of 7 mL of ProHance. Imaging is reviewed using the [employer] computer-aided detection system. FINDINGS: There is a large right inguinal hernia containing mesenteric fat and several loops of unobstructed small intestine. There is no evidence of skeletal metastatic disease or pelvic or inguinal lymphadenopathy. Overall prostate glandular dimensions are 7.7 x 6.0 x 8.0 cm. Glandular volume 178.5 mL. There is considerable nodular enlargement of the central gland consistent with benign prostatic hypertrophy. There are T2 hyperintense cystic changes in the right apex. There is a T1 hyperintense proteinaceous cyst in the right anteroinferior apex. The peripheral zone is quite thin and compressed in appearance. There are 3 nodular areas of low T2 signal intensity in the central gland which are identified and for which regions of interest are drawn for consideration of ultrasound/MR fusion directed needle biopsy. Lesion #1 is in the left mid anterior transition zone with a calculated volume of 1.3 mL, diameter is 1.3 x 1.1 x 1.4 cm. It is a fairly well-circumscribed low T2 signal intensity nodular lesion with some restricted diffusion. It is not hypervascular. BIRADS category 3 Lesion #2 is in the right apical anterior transition zone calculated volume of 0.35 mL and diameters of 0.9 x 0.8 x 1.0 cm. It shows somewhat ill-defined margins low T2 signal mild restricted diffusion but not hypervascularity. BIRADS category 3. The third lesion is in the right mid posterior transition zone with a calculated volume of 0.99 mL and diameters of 1.3 x 1.2 x 1.0 cm. It shows low T2 signal, no restricted diffusion or hypervascular contrast enhancement, and is BIRADS 2 low likelihood of significant prostate malignancy. IMPRESSION: Moderate to marked prostate enlargement with hypertrophy of the central gland and cystic and nodular changes. There are 3 targets identified and submitted. No evidence of extraprostatic disease. <Electronically signed by Corby Jackson > 07/30/20 [id number]
== END ==
LOC: M PLARAD 16:09
PROVIDERS: ATTEND Nurse Practitioner Women's Health
DX: R97.20 Elevated prostate specific antigen [PSA] (principal)

== ENCOUNTER → 2020-08-27 | Outpatient (CLI) | payer BC, MEDICARE ==
--- NOTE | 2020-08-27 13:16 | REPPI ---
INDICATION: ELEVATED PSA. COMPARISON: None. TECHNIQUE: Transrectal prostate sonography, ultrasound guidance. FINDINGS: . Transrectal sonographic guidance is provided to Dr. Cantrell who performed trans rectal ultrasound guided needle biopsy procedure. IMPRESSION: Transrectal sonographic guidance. <Electronically signed by Corby Jackson > 08/27/20 [id number]
== END ==
LOC: M SMT PRO 09:14
PROVIDERS: ATTEND Urology
DX: R97.20 Elevated prostate specific antigen [PSA] (principal)

== ENCOUNTER → 2020-10-27 | Outpatient (CLI) | payer BC, MEDICARE ==
[2020-10-27 09:09] LABS: HEMATOCRIT 42.4 % (42.0-52.0); HEMOGLOBIN 13.4 g/dl (13.5-17.5); MEAN CORPUSCULAR HEMOGLOBIN 29.8 pg (27.0-33.0); MEAN CORPUSCULAR HGB CONC 31.6 g/dl (32.0-36.5); MEAN CORPUSCULAR VOLUME 94.4 fl (80.0-96.0); PLATELET COUNT, AUTOMATED 197 10^3/uL (150-450); RED BLOOD COUNT 4.49 10^6/uL (4.30-6.10); WHITE BLOOD COUNT 6.2 10^3/uL (4.0-10.0)
[2020-10-27 09:40] LABS: ALBUMIN 3.1 GM/DL (3.2-5.2); BILIRUBIN,TOTAL 0.3 MG/DL (0.2-1.0); CALCIUM LEVEL 8.3 MG/DL (8.8-10.2); CHOLESTEROL RISK RATIO 2.578 (<5); CREATININE FOR GFR 1.46 MG/DL (0.70-1.30); GLOMERULAR FILTRATION RATE 48.9 (>35); POTASSIUM SERUM 4.5 MEQ/L (3.5-5.1); PROSTATIC SPECIFIC AG MONITOR 7.04 NG/ML (< 4.00); THYROID STIMULATING HORMONE 0.95 uIU/ML (0.358-3.740); TOTAL PROTEIN 6.8 GM/DL (6.4-8.2)
[2020-10-27 10:08] LABS: HEMOGLOBIN A1c 5.6 %
== END ==
LOC: M LAB 08:27
PROVIDERS: ATTEND Family Medicine
DX: E03.9 Hypothyroidism, unspecified (principal); I10 Essential (primary) hypertension; E11.9 Type 2 diabetes mellitus without complications

== ENCOUNTER 2020-11-11 09:04 | Emergency (ER) | payer BC, MEDICARE ==
[~2020-11-11] VITALS: Ht 170.2 cm; Wt 73.8 kg
[2020-11-11] MEDS ORDERED: NS 1,000 ML IV ONE ×2 (09:15→09:45)
--- NOTE | 2020-11-11 09:44 | REP ---
INDICATION: chest pain. COMPARISON: Comparison chest x-ray June 05, 2020.. TECHNIQUE: Semi-erect AP portable chest x-ray. FINDINGS: Patient is status post prior median sternotomy. Monitoring electrodes and oxygen delivery tubing are noted. The lungs are well inflated and free of infiltrate. The pleural angles appear sharp. Heart size is borderline unchanged. Pulmonary vasculature is not increased. IMPRESSION: Borderline heart size. Otherwise no acute disease. <Electronically signed by Corby Jackson > 11/11/20 [id number]
[2020-11-11 10:01] LABS: HEMATOCRIT 25.8 % (42.0-52.0); HEMOGLOBIN 7.9 g/dl (13.5-17.5); MEAN CORPUSCULAR HEMOGLOBIN 29.9 pg (27.0-33.0); MEAN CORPUSCULAR HGB CONC 30.6 g/dl (32.0-36.5); MEAN CORPUSCULAR VOLUME 97.7 fl (80.0-96.0); RED BLOOD COUNT 2.64 10^6/uL (4.30-6.10); WHITE BLOOD COUNT 7.7 10^3/uL (4.0-10.0)
[2020-11-11 10:04] VITALS: O2SAT 99
[2020-11-11 10:15] LABS: PLATELET COUNT, AUTOMATED 88 10^3/uL (150-450)
--- NOTE | 2020-11-11 10:15 | REP ---
INDICATION: r/o AAA. COMPARISON: None. TECHNIQUE: Retroperitoneal sonography. FINDINGS: Scanning through the retroperitoneum demonstrates that the abdominal aorta is normal in caliber at the level of the diaphragmatic hiatus measuring 2.2 x 2.6 cm in AP by transverse dimension respectively. The abdominal aorta is obscured at the level of the renal arteries. Below the level renal arteries at mid aortic level, the dimensions are 1.9 x 2.2 cm. There is a large distal abdominal aortic aneurysm. This measures 7.4 cm anteroposterior by 7.5 cm right to left. A 6.5 cm length of abdominal aorta is aneurysmal. Common iliac arteries are obscured by bowel gas. No periaortic hematoma is appreciated. An irregular lumen with mural thrombus is seen within the aneurysm. IMPRESSION: Large abdominal aortic aneurysm, 7.4 x 7.5 cm in AP by transverse dimension respectively involving the distal aorta. Iliac arteries and the aorta at the level of the renal arteries is obscured by bowel gas. <Electronically signed by Corby Jackson > 11/11/20 [id number]
[2020-11-11 10:19] LABS: RSV AMPLIFICATION NEGATIVE (NEGATIVE)
[2020-11-11] MEDS ORDERED: NS 2,210 ML in IV 1 EA IV ONE (10:25)
[2020-11-11] MEDS ORDERED: CEFEPIME HCL 2 GM in D5W MINI-BAG PLUS 50 ML IV ONE (10:25)
[2020-11-11 10:40] VITALS: BP 62/39
--- NOTE | 2020-11-11 13:12 | RO ---
OPERATIVE NOTE DATE OF OPERATION: 11/11/2020 PREPROCEDURE DIAGNOSIS: Shock POSTPROCEDURE DIAGNOSIS: Shock. PROCEDURE: Central line procedure. SURGEON: Judy Cuellar MD. INDICATION: Vascular access. CONSENT: Due to the emergent nature of the procedure, the permission was implied, and the procedure was performed emergently in the ED. PROCEDURE SUMMARY: A central line insertion practices form was completed by an independent observer. A time out was performed prior to the procedure. Full sterile technique was maintained throughout the procedure including a surgical cap, mask with protective eye wear, full gown, and sterile gloves. The patient was placed supine. The left groin region was prepped using chlorhexidine scrub and draped in sterile fashion using a full drape and sterile probe cover employed. The left femoral vein was identified using ultrasound. Anesthesia was achieved over the vein using 1% lidocaine. Using real-time [id number] guidance, the introducer needle was inserted into the left femoral vein under direct ultrasound visualization. Venous blood was withdrawn. The introducer needle was removed over the guidewire. A small incision was made at the skin surface with a scalpel, and a dilator was exchanged over the guidewire. After appropriate dilation was obtained, the dilator was exchanged over the wire for a triple lumen central venous catheter. The wire was removed, and the catheter was sutured in place. A sterile chlorhexidine impregnated dressing was placed over the catheter at the insertion site. The patient tolerated the procedure without any hemodynamic compromise. At time of procedure completion, all ports were aspirated and flushed properly. ESTIMATED BLOOD LOSS: Less than 2 mL. MTDD
--- NOTE | 2020-11-11 17:38 | ECGEPIP ---
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
--- NOTE | 2020-11-11 17:39 | ECGEPIP ---
[facility] - ED Test Date: 2020-11-11 Pat Name: KAYLEY METZGER Department: Room: - Gender: Male Community Youth Secretary: ELIZABETHDIMA : 1935 Requested By: Nelson Orozco Order Number: [id number] Reading MD: Tigist Mroalez Measurements Intervals [place] Rate: 68 P: 77 [place]: 142 QRS: 42 QRSD: 92 T: 76 QT: 458 QTc: 487 Interpretive Statements Sinus rhythm with occasional premature ventricular complexes Nonspecific ST abnormality Prolonged QT, clinical correlation Electronically Signed on 11-11-2020 17:38:53 EDT by Tigist Moralez
== END 2020-11-11 10:57 | disposition short-term general hospital (02) ==
LOC: M ED 09:04
DX: I71.02 Dissection of abdominal aorta (principal); T79.4XXA Traumatic shock, initial encounter; X58.XXXA Exposure to other specified factors, initial encounter; Y92.89 Other specified places as the place of occurrence of the external cause; I10 Essential (primary) hypertension; E78.5 Hyperlipidemia, unspecified; Z79.899 Other long term (current) drug therapy; Z79.82 Long term (current) use of aspirin; Z79.84 Long term (current) use of oral hypoglycemic drugs
CPT/HCPCS: 36415; 36556; 71045; 76775; 80047; 83605; 84484; 85027; 85049; 85055; 86850; 86900; 86901; 87631; 93005; 96374; 99291; 99292; J0692